=== PATIENT | female | born 1990 | race Hispanic/Latino ===

== ENCOUNTER → 2016-03-15 | Outpatient (CLI) | payer OTHER | LOC: M SMT 14:19 | PROVIDERS: ATTEND Obstetrics & Gynecology | DX: Z34.82 Encounter for supervision of other normal pregnancy, second trimester (principal) ==

== ENCOUNTER → 2016-03-18 | Outpatient (CLI) | payer OTHER ==
--- NOTE | 2016-03-19 03:19 | REP ---
Clinical: Anatomical evaluation. Comparison: None . Findings: Examination demonstrates a single live intrauterine in cephalic presentation. motion is identified by technologist. Placenta is noted posteriorly and grade zero without evidence for placenta previa or abruption. Amniotic fluid volume is normal. Cervix measures 4.3 cm in length and appears closed. No evidence for nuchal cord. Gestational age by current measurements 17 weeks 5 days with GWEN 08/21/2016 . FHR equals 150 beats per minute. BPD 3.7 cm 17 weeks 2 days HC 14.4 cm 17 weeks 4 days AC 12.4 cm 18 weeks 0 days FL 2.5 cm 17 weeks 4 days HL 2.6 cm 18 weeks 2 days HC/AC ratio 1.16 Estimated weight 210 grams ( 48th percentile). Anatomical assessment demonstrates normal structures including cranium, choroid plexus, cavum, cerebellum/posterior fossa, facial profile, lungs, four-chamber heart, stomach, bladder, and extremities. Bilateral renal pelviectasis within normal range. Limited evaluation of the facial features, cardiac ventricular outflow tracts, diaphragm, cord insertion/three-vessel cord and spine noted. Impression: Single live intrauterine in doubt presentation. Renal pelviectasis within normal range along with anatomical limitations as described above may warrant reevaluation and follow-up. No gross abnormality. Signed by Brayden Pruitt MD 03/19/2016 03:11 A
== END ==
LOC: M SMT 14:46
PROVIDERS: ATTEND Obstetrics & Gynecology
DX: Z34.82 Encounter for supervision of other normal pregnancy, second trimester (principal)

== ENCOUNTER → 2016-04-09 | Outpatient (CLI) | payer OTHER ==
--- NOTE | 2016-04-09 16:10 | REP ---
Obstetric sonography: History: Supervision of followup anatomy. Findings: Scanning through the gravid uterus demonstrates a viable single intrauterine gestation in a breech lie. motion is observed and heart rate is recorded at 136 beats per minute. A posterior grade 1 placenta is seen without evidence of previa or abruption. Amniotic fluid is subjectively normal. Closed cervical length is 3.3 cm. No extrauterine abnormality is observed. There has been appropriate interval growth. Exam quality was inhibited by maternal body habitus. cardiac views are still less than optimally seen. There is mild bilateral renal pyelectasis with the AP dimension of each kidney measuring 0.4 cm. This is the upper range of normal. No other abnormality is seen. The following anatomic structures are identified today and felt to be sonographically unremarkable: cranium, choroid plexus, cavum, cerebellum and posterior fossa, face and profile, lungs, diaphragm, left-sided stomach, abdominal wall cord insertion, three-vessel umbilical cord, urinary bladder, spine, upper and lower extremities. Biometry chart: BPD 4.7 cm = 20 weeks 1 day Head circumference 18.7 cm = 21 weeks 0 days Abdominal circumference 16.6 cm = 21 weeks 5 days Femur length 3.5 cm = 21 weeks 0 days Humeral length 3.3 cm = 21 weeks 2 days HC/AC ratio normal at 1.12, cephalic index normal at 0.67, estimated weight 412 grams 0 pounds 14 ounces 59th percentile for 20 weeks 6 days. Impression: Viable single intrauterine gestation at 20 weeks 5 days by today's composite sonographic criteria. Expected gestational age estimate based on prior sonography is 20 weeks 6 days. GWEN by prior sonography 08/21/2016. cardiac structure left and right ventricular cardiac outflow tract view still less than optimally seen. Four-chamber heart view obtained previously. Mild bilateral renal pyelectasis. Signed by Martínez Toro MD 04/09/2016 04:46 P
== END ==
LOC: M SMT 13:44
PROVIDERS: ATTEND Advanced Practice Midwife
DX: O99.212 Obesity complicating pregnancy, second trimester (principal); Z3A.20 20 weeks gestation of pregnancy

== ENCOUNTER → 2016-05-27 | Outpatient (CLI) | payer OTHER ==
[2016-05-27 18:31] LABS: BASO % 0.1 % (0.0-1.0); EOS # 0.1 K/mm3 (0.0-0.50); EOS % 0.9 % (0.0-3.0); LARGE UNSTAINED CELL # 0.1 K/mm3 (0.0-0.4); LARGE UNSTAINED CELL % 0.9 % (0.0-4.0); LYMPH # 1.8 K/mm3 (1.5-6.5); MEAN CORPUSCULAR HEMOGLOBIN 27.9 pg (27.0-33.0); MEAN CORPUSCULAR HGB CONC 33.1 g/dl (32.0-36.5); MEAN CORPUSCULAR VOLUME 84.5 fl (80.0-96.0); MONO # 0.3 K/mm3 (0.0-0.8); MONO % 3.4 % (0.0-5.0); NEUTROPHILS # 7.7 K/mm3 (1.8-7.7); NEUTROPHILS % 77.6 % (36.0-66.0); PLATELET COUNT, AUTOMATED 349 k/mm3 (150-450); RED CELL DISTRIBUTION WIDTH 13.8 % (11.5-14.5)
== END ==
LOC: M SMT 13:40
PROVIDERS: ATTEND Specialist
DX: O99.212 Obesity complicating pregnancy, second trimester (principal); Z3A.00 Weeks of gestation of pregnancy not specified
CPT/HCPCS: 36415; 82950; 85025; 86850; 86900; 86901; J2790

== ENCOUNTER → 2016-05-29 | Outpatient (CLI) | payer OTHER ==
--- NOTE | 2016-05-30 04:39 | REP ---
Clinical: Anatomical evaluation. Comparison: 04/09/2016 . Findings: Examination demonstrates a single live intrauterine in cephalic presentation. motion is identified by technologist. Placenta is noted posteriorly and grade one without evidence for placenta previa or abruption. Amniotic fluid volume is normal. Cervix measures 3.8 cm in length and appears closed. No evidence for nuchal cord. Gestational age by first ultrasound 28 weeks 0 days with GWEN 08/21/2016 . Gestational age by current measurements 28 weeks 6 days with GWEN 08/15/2016 . FHR equals 139 beats per minute. Amniotic fluid index equals 8.0 cm Estimated weight 1304 grams ( 63rd percentile). Anatomical assessment demonstrates normal cranium, stomach, bladder. A cardiac ventricular outflow tracts are again poorly evaluated. Bilateral mild renal pelviectasis suggested. Impression: Single live intrauterine in cephalic presentation demonstrating appropriate interval growth. Amniotic fluid index is minimally below normal range. Limited evaluation of the cardiac ventricular outflow tracts and mild renal pelviectasis may warrant reevaluation and follow-up. Signed by Brayden Pruitt MD 05/30/2016 04:31 A
== END ==
LOC: M SMT 14:03
PROVIDERS: ATTEND Specialist
DX: Z36 Encounter for antenatal screening of mother (principal); Z3A.28 28 weeks gestation of pregnancy

== ENCOUNTER 2016-06-30 03:18 | Outpatient (CLI) | payer OTHER ==
[~2016-06-30] VITALS: Ht 157.5 cm; Wt 130.0 kg
[2016-06-30] MEDS ORDERED: PRENTAB9 PO (03:25)
[2016-06-30] MEDS ORDERED: TUMS500C PO (03:25)
[2016-06-30 03:37] VITALS: BP 138/80
[2016-06-30 04:32] VITALS: BP 136/75
== END 2016-06-30 04:40 | disposition home or self-care (01) ==
LOC: M LDO 03:18
PROVIDERS: ATTEND Advanced Practice Midwife
DX: O26.893 Other specified pregnancy related conditions, third trimester (principal); R10.9 Unspecified abdominal pain; Z3A.32 32 weeks gestation of pregnancy; O99.613 Diseases of the digestive system complicating pregnancy, third trimester; O99.213 Obesity complicating pregnancy, third trimester; E66.9 Obesity, unspecified; K21.9 Gastro-esophageal reflux disease without esophagitis

== ENCOUNTER → 2016-07-24 | Outpatient (REF) | payer OTHER ==
[~2016-07-24] MED LIST: PRENTAB9 PO; TUMS500C PO
== END ==
LOC: M LAB REF 17:12
PROVIDERS: ATTEND Specialist
DX: Z34.83 Encounter for supervision of other normal pregnancy, third trimester (principal)

== ENCOUNTER → 2016-07-25 | Outpatient (CLI) | payer OTHER ==
[2016-07-25 19:30] LABS: MEAN CORPUSCULAR HGB CONC 33.7 g/dl (32.0-36.5); MEAN CORPUSCULAR VOLUME 83.2 fl (80.0-96.0); RED CELL DISTRIBUTION WIDTH 14.1 % (11.5-14.5); WHITE BLOOD COUNT 10.2 K/mm3 (4.0-10.0)
[2016-07-25 19:52] LABS: ALT/SGPT 15 U/L (12-78); AST/SGOT 16 U/L (15-37); BILIRUBIN,TOTAL 0.2 MG/DL (0.2-1.0); CREATININE FOR GFR 0.56 MG/DL (0.55-1.02); GLOMERULAR FILTRATION RATE > 60.0 (>60); URIC ACID 3.7 MG/DL (2.6-6.0)
[2016-07-25 20:28] LABS: CREATININE, SERUM 0.6 MG/DL (0.6-1.0)
[2016-07-25 20:59] LABS: CREATININE CLEARANCE, URINE 204.4 ML/MIN (75-115)
== END ==
LOC: M LAB 18:52
PROVIDERS: ATTEND Advanced Practice Midwife
DX: Z34.83 Encounter for supervision of other normal pregnancy, third trimester (principal)

== ENCOUNTER 2016-08-09 16:16 | Outpatient (CLI) | payer OTHER ==
[~2016-08-09] VITALS: Ht 157.5 cm; Wt 135.0 kg
[2016-08-09] MEDS ORDERED: ACET50TA PO (16:20)
[2016-08-09 16:39] VITALS: BP 127/64
== END 2016-08-09 17:26 | disposition home or self-care (01) ==
LOC: M LDO 16:16
PROVIDERS: ATTEND Advanced Practice Midwife
DX: O36.8930 Maternal care for other specified fetal problems, third trimester, not applicable or unspecified (principal); Z3A.38 38 weeks gestation of pregnancy

== ENCOUNTER 2016-08-24 09:16 | Inpatient (IN) | payer OTHER ==
[~2016-08-24] VITALS: Ht 157.5 cm; Wt 142.0 kg
[2016-08-24] VITALS (17 sets, daily range): BP systolic 133–180; BP diastolic 66–100
[~2016-08-24 09:16] MED LIST changes: +ACET50TA PO
[2016-08-24] MEDS ORDERED: LACTATED RINGER'S 1000 ML IV STA (10:17)
[2016-08-24] MEDS ORDERED: LR 1,000 ML IV SCH (10:17)
[2016-08-24] MEDS ORDERED: miSOPROStol 50 MCG 1/2 TAB (S0191) SL ONE ×3 (10:30→22:00)
[2016-08-24 12:37] LABS: MEAN CORPUSCULAR HEMOGLOBIN 27.7 pg (27.0-33.0); MEAN CORPUSCULAR HGB CONC 33.5 g/dl (32.0-36.5); MEAN CORPUSCULAR VOLUME 82.6 fl (80.0-96.0)
[2016-08-24 12:56] LABS: ALT/SGPT 13 U/L (12-78); AST/SGOT 14 U/L (15-37); BILIRUBIN,TOTAL 0.2 MG/DL (0.2-1.0); CREATININE FOR GFR 0.43 MG/DL (0.55-1.02); GLOMERULAR FILTRATION RATE > 60.0 (>60); URIC ACID 4.2 MG/DL (2.6-6.0)
[2016-08-24] MEDS ORDERED: PROMETHAZINE INJ 25 MG/ML VIAL (J2550) IV ONE ×2 (20:00→23:00)
[2016-08-24] MEDS ORDERED: BUTORPHANOL 2 MG/ML INJ (J0595) IV ONE ×2 (20:00→23:00)
[2016-08-25] VITALS (45 sets, daily range): BP systolic 113–173; BP diastolic 58–98
[2016-08-25] MEDS ORDERED: BUTORPHANOL 2 MG/ML INJ (J0595) IV ONE (04:00)
[2016-08-25] MEDS ORDERED: PROMETHAZINE INJ 25 MG/ML VIAL (J2550) IV ONE (04:00)
[2016-08-25] MEDS ORDERED: OXYTOCIN DRIP 30 UNITS in APPROPRIATE DILUENT 1 EA IV SCH ×2 (07:30→21:59)
[2016-08-25 07:49] LABS: MEAN CORPUSCULAR HEMOGLOBIN 27.2 pg (27.0-33.0); MEAN CORPUSCULAR HGB CONC 33.1 g/dl (32.0-36.5); MEAN CORPUSCULAR VOLUME 82.1 fl (80.0-96.0); RED CELL DISTRIBUTION WIDTH 15.2 % (11.5-14.5); WHITE BLOOD COUNT 17.9 K/mm3 (4.0-10.0)
[2016-08-25] MEDS ORDERED: FENTANYL 2MCG/ML ROPIVACAINE 0.2% IN 0.9% NACL 200ML IVBAG As Ordered ONE (07:56)
[2016-08-25 08:04] LABS: ALBUMIN 2.3 GM/DL (3.2-5.2); ALBUMIN/GLOBULIN RATIO 0.52 (1.00-1.93); ALKALINE PHOSPHATASE 127 U/L (45-117); ALT/SGPT 11 U/L (12-78); ANION GAP 11 MEQ/L (8-16); AST/SGOT 15 U/L (15-37); BILIRUBIN,TOTAL 0.3 MG/DL (0.2-1.0); BLOOD UREA NITROGEN 7 MG/DL (7-18); CARBON DIOXIDE LEVEL 18 MEQ/L (21-32); CHLORIDE LEVEL 106 MEQ/L (98-107); CREATININE FOR GFR 0.59 MG/DL (0.55-1.02); GLOMERULAR FILTRATION RATE > 60.0 (>60); GLUCOSE, FASTING 123 MG/DL (70-105); POTASSIUM SERUM 3.9 MEQ/L (3.5-5.1); SODIUM LEVEL 135 MEQ/L (136-145); TOTAL PROTEIN 6.7 GM/DL (6.4-8.2); URIC ACID 5.1 MG/DL (2.6-6.0)
[2016-08-25] MEDS ORDERED: ePHEDrine SULFATE 25 MG/5 ML(5MG/ML) SYRINGE IV PRN (09:45)
[2016-08-25] MEDS ORDERED: NALOXONE INJ 0.4 MG/1 ML VIAL (J2310) IV PRN (09:45)
[2016-08-25] MEDS ORDERED: FENTANYL/ROPIVACAINE/NACL BAG 200 ML EPIDURAL SCH (09:45)
[2016-08-25] MEDS ORDERED: EPIDURAL/PCA KEYS XX PRN (09:45)
[2016-08-25] MEDS ORDERED: REFRIGERATOR IV KEYS XX PRN (09:45)
[2016-08-25] MEDS ORDERED: EPIDURAL COMMENT XX SCH (09:45)
[2016-08-25] MEDS ORDERED: LACTATED RINGER'S 1000 ML IV PRN (09:45)
[2016-08-25] MEDS ORDERED: ONDANSETRON 4MG/2ML VIAL (J2405) IV PRN ×2 (09:45→22:00)
[2016-08-25] MEDS ORDERED: diphenhydrAMINE INJ 50MG/ML VIAL (J1200) IV PRN (09:45)
[2016-08-25] MEDS: LR 1,000 ML IV SCH (21:59)
[2016-08-25] MEDS ORDERED: PROMETHAZINE 25 MG TAB PO PRN (22:00)
[2016-08-25] MEDS ORDERED: DIBUCAINE 1% OINTMENT 30GM TOP PRN (22:00)
[2016-08-25] MEDS ORDERED: DOCUSATE SODIUM 100 MG CAP PO PRN (22:00)
[2016-08-25] MEDS ORDERED: MEASLES,MUMPS,RUBELLA VACCINE INJ (MMR-II) (90707) SC SCH (22:00)
[2016-08-25] MEDS ORDERED: RHOGAM 300 MCG (1500 IU) INJ (J2790) IM SCH (22:00)
[2016-08-25] MEDS: IBUPROFEN 800 MG TAB PO PRN (22:27)
[2016-08-26] VITALS (8 sets, daily range): BP systolic 128–169; BP diastolic 69–92
[2016-08-26] MEDS ORDERED: NIFEdipine 10 MG CAP PO ONE (01:00)
[2016-08-26] MEDS: IBUPROFEN 800 MG TAB PO PRN ×3 (05:53→22:57)
[2016-08-26] MEDS: LR 1,000 ML IV SCH (05:59)
[2016-08-26] MEDS: PRENATAL VITAMINS CHEWABLE TABLET PO SCH (09:00)
[2016-08-26] MEDS: ACETAMINOPHEN 500 MG TAB PO PRN ×3 (09:30→19:24)
[2016-08-26] MEDS: NIFEdipine 10 MG CAP PO SCH ×2 (13:36→22:58)
[2016-08-27] VITALS (8 sets, daily range): BP systolic 133–147; BP diastolic 63–77
[2016-08-27] MEDS: IBUPROFEN 800 MG TAB PO PRN ×3 (05:46→21:27)
[2016-08-27] MEDS: NIFEdipine 10 MG CAP PO SCH (05:47)
[2016-08-27] MEDS: ACETAMINOPHEN 500 MG TAB PO PRN ×3 (07:30→18:04)
[2016-08-27] MEDS: PRENATAL VITAMINS CHEWABLE TABLET PO SCH (07:44)
[2016-08-28 02:00] VITALS: BP 135/66
[2016-08-28 06:49] VITALS: BP 146/72
[2016-08-28] MEDS: PRENATAL VITAMINS CHEWABLE TABLET PO SCH (07:59)
== END 2016-08-28 16:50 | disposition home or self-care (01) | DRG 775 ==
LOC: M LDO 09:16 → M LDI 10:11 → M OBS 08-26 07:40
PROVIDERS: ADMIT Obstetrics & Gynecology; ATTEND Obstetrics & Gynecology
PROC: 10E0XZZ Delivery of Products of Conception, External Approach (ICD-10-PCS; principal; 2016-08-25)
PROC: 0KQM0ZZ Repair Perineum Muscle, Open Approach (ICD-10-PCS; 2016-08-25)
DX: O48.0 Post-term pregnancy (principal); Z37.0 Single live birth; Z3A.40 40 weeks gestation of pregnancy; E66.01 Morbid (severe) obesity due to excess calories; O99.214 Obesity complicating childbirth; O13.4 Gestational [pregnancy-induced] hypertension without significant proteinuria, complicating childbirth; O70.1 Second degree perineal laceration during delivery

== ENCOUNTER 2016-09-06 06:42 | Day surgery (SDC) | payer OTHER ==
[2016-09-06] VITALS (8 sets, daily range): BP systolic 148–176; BP diastolic 70–90
[~2016-09-06] VITALS: Ht 157.5 cm; Wt 130.6 kg
[2016-09-06] MEDS ORDERED: LABE10TAB PO (07:02)
[2016-09-06 07:47] LABS: BASO % 0.1 % (0.0-1.0); EOS # 0.1 K/mm3 (0.0-0.50); EOS % 0.4 % (0.0-3.0); LARGE UNSTAINED CELL # 0.1 K/mm3 (0.0-0.4); LARGE UNSTAINED CELL % 0.5 % (0.0-4.0); LYMPH # 1.2 K/mm3 (1.5-6.5); LYMPH % 8.9 % (24.0-44.0); MEAN CORPUSCULAR HEMOGLOBIN 26.9 pg (27.0-33.0); MEAN CORPUSCULAR HGB CONC 32.5 g/dl (32.0-36.5); MEAN CORPUSCULAR VOLUME 82.9 fl (80.0-96.0); MONO # 0.3 K/mm3 (0.0-0.8); MONO % 2.3 % (0.0-5.0); NEUTROPHILS # 11.2 K/mm3 (1.8-7.7); NEUTROPHILS % 87.8 % (36.0-66.0); PLATELET COUNT, AUTOMATED 561 k/mm3 (150-450); RED CELL DISTRIBUTION WIDTH 14.9 % (11.5-14.5); WHITE BLOOD COUNT 12.8 K/mm3 (4.0-10.0)
--- NOTE | 2016-09-06 08:01 | REP ---
Clinical: Abdominal pain and constipation. Technique: Two supine views of the abdomen and pelvis. Findings: Bowel gas pattern is nonspecific. No organomegaly. No abnormal calcifications. Skeletal structures are intact. Impression: Nonspecific bowel gas pattern. Signed by Brayden Pruitt MD 09/06/2016 07:52 A
[2016-09-06 08:10] LABS: ALBUMIN/GLOBULIN RATIO 0.63 (1.00-1.93); ALKALINE PHOSPHATASE 145 U/L (45-117); ALT/SGPT 64 U/L (12-78); AMYLASE 91 U/L (25-115); ANION GAP 11 MEQ/L (8-16); AST/SGOT 98 U/L (15-37); BILIRUBIN,DIRECT 0.2 MG/DL (0.0-0.2); BILIRUBIN,TOTAL 0.4 MG/DL (0.2-1.0); BLOOD UREA NITROGEN 13 MG/DL (7-18); CALCIUM LEVEL 9.5 MG/DL (8.5-10.1); CARBON DIOXIDE LEVEL 23 MEQ/L (21-32); CHLORIDE LEVEL 105 MEQ/L (98-107); CREATININE FOR GFR 0.64 MG/DL (0.55-1.02); GLOMERULAR FILTRATION RATE > 60.0 (>60); GLUCOSE, FASTING 111 MG/DL (70-105); SODIUM LEVEL 139 MEQ/L (136-145); TOTAL PROTEIN 7.8 GM/DL (6.4-8.2)
--- NOTE | 2016-09-06 08:47 | REP ---
RIGHT UPPER QUADRANT ULTRASOUND: Real-time sonographic evaluation of the right upper quadrant performed. Multiple gallstones are seen in the gallbladder. Gallbladder wall is thickened up to 5 mm. No free fluid is seen. There is no intrahepatic or extrahepatic biliary dilatation, common bile duct measuring 2 mm in diameter. Liver and pancreas demonstrate homogenous echotexture with no gross mass. Right kidney demonstrates no hydronephrosis or nephrolithiasis with normal size at 13.7 cm in length. IMPRESSION: Multiple gallstones in the gallbladder with diffusely thickened wall. No free fluid or biliary dilatation. Signed by Lux Hickey MD 09/06/2016 09:03 A
[2016-09-06] MEDS ORDERED: LR 1,000 ML IV SCH ×3 (12:00→19:30)
[2016-09-06] MEDS ORDERED: BUPIVACAINE HCL 0.25% 30 ML VIAL As Ordered ONE (15:11)
[2016-09-06 15:59] LABS: CONTROL LINE UCG INT CTR LINE PRESENT
[2016-09-06] MEDS ORDERED: MIDAZOLAM INJ 2 MG/2 ML VIAL (J2250) As Ordered ONE (16:53)
[2016-09-06] MEDS ORDERED: fentaNYL 250 MCG/5 ML INJECTION (J3010) As Ordered ONE (16:53)
[2016-09-06] MEDS ORDERED: CONRAY-60 60% 50ML VIAL (Q9961) As Ordered ONE (17:23)
[2016-09-06] MEDS ORDERED: ceFAZolin 1GM INJ (J0690) As Ordered ONE (17:24)
[2016-09-06] MEDS ORDERED: PHENYLephrine HCL 500 MCG/5 ML (100MCG/ML) SYRINGE (J2370) As Ordered ONE (17:34)
[2016-09-06] MEDS ORDERED: GLYCOPYRROLATE INJ 0.2 MG/ML 2 ML VIAL As Ordered ONE (17:53)
[2016-09-06] MEDS ORDERED: LIDOCAINE 2% INJ 100 MG/5 ML SDV (FOR ANES.) As Ordered ONE (17:53)
[2016-09-06] MEDS ORDERED: ROCURONIUM BROMIDE 50 MG/5 ML VIAL/SYRINGE As Ordered ONE (17:53)
[2016-09-06] MEDS ORDERED: dexameTHASONE 4 MG/ML 1ML VIAL (J1100) As Ordered ONE (17:53)
[2016-09-06] MEDS ORDERED: NEOSTIGMINE 1MG/ML 5 ML SYRINGE (J2710) As Ordered ONE (17:53)
[2016-09-06] MEDS ORDERED: ONDANSETRON 4MG/2ML VIAL (J2405) As Ordered ONE (17:53)
[2016-09-06] MEDS ORDERED: PROPOFOL 200 MG/20 ML VIAL As Ordered ONE (17:53)
[2016-09-06] MEDS ORDERED: KETOROLAC 60 MG/2 ML VIAL (J1885) As Ordered ONE (17:53)
[2016-09-06] MEDS ORDERED: METOCLOPRAMIDE INJ 10MG/2ML VIAL (J2765) As Ordered ONE (17:54)
[2016-09-06] MEDS ORDERED: HYDROmorphone HCL 2 MG/ML 1ML VIAL (J1170) As Ordered ONE (18:05)
--- NOTE | 2016-09-06 18:53 | REP ---
REASON: Rule out choledocholithiasis. Three spot images of the abdomen were obtained during intraoperative cholangiography in my [place]. No abnormal focal filling defects are seen in the opacified common bile duct. The duodenum is seen to opacify normally. Signed by Manuel Espinoza DO 09/06/2016 07:52 P
[2016-09-06] MEDS ORDERED: ONDANSETRON 4MG/2ML VIAL (J2405) IV PRN ×2 (19:15→19:30)
[2016-09-06] MEDS ORDERED: MORPHINE 2 MG/ML 1ML SYRINGE IV PRN (19:15)
[2016-09-06] MEDS ORDERED: KETOROLAC 30 MG/ML VIAL (J1885) IV PRN (19:15)
[2016-09-06] MEDS ORDERED: PERCOCET 5MG/325MG TAB PO PRN (19:30)
[2016-09-06] MEDS ORDERED: fentaNYL 100 MCG/2 ML INJECTION (J3010) IV PRN (19:30)
[2016-09-06] MEDS: LABETALOL 100 MG TAB PO SCH (21:01)
[2016-09-07] MEDS: ACETAMINOPHEN TAB 650MG DOSE (2X325MG) PO SCH ×2 (00:05→05:51)
[2016-09-07 00:20] VITALS: BP 156/74
[2016-09-07 01:20] VITALS: BP 139/72
[2016-09-07 03:54] VITALS: BP 138/75
[2016-09-07 06:50] LABS: ALBUMIN 3.1 GM/DL (3.2-5.2); ALBUMIN/GLOBULIN RATIO 0.74 (1.00-1.93); ALKALINE PHOSPHATASE 192 U/L (45-117); ALT/SGPT 127 U/L (12-78); ANION GAP 11 MEQ/L (8-16); AST/SGOT 88 U/L (15-37); BILIRUBIN,TOTAL 0.3 MG/DL (0.2-1.0); BLOOD UREA NITROGEN 8 MG/DL (7-18); CALCIUM LEVEL 8.9 MG/DL (8.5-10.1); CARBON DIOXIDE LEVEL 23 MEQ/L (21-32); CHLORIDE LEVEL 102 MEQ/L (98-107); CREATININE FOR GFR 0.64 MG/DL (0.55-1.02); GLOMERULAR FILTRATION RATE > 60.0 (>60); GLUCOSE, FASTING 106 MG/DL (70-105); POTASSIUM SERUM 4.4 MEQ/L (3.5-5.1); SODIUM LEVEL 136 MEQ/L (136-145); TOTAL PROTEIN 7.3 GM/DL (6.4-8.2)
[2016-09-07 08:30] VITALS: BP 141/88
[2016-09-07 08:50] VITALS: BP 141/88
[2016-09-07] MEDS: LABETALOL 100 MG TAB PO SCH (08:50)
[2016-09-07] MEDS ORDERED: NORCOTAB PO (12:05)
--- NOTE | 2016-09-08 14:24 | RO ---
DATE OF PROCEDURE: 09/06/2016 PREOPERATIVE DIAGNOSIS: Cholelithiasis with possible choledocholithiasis and biliary pancreatitis. POSTOPERATIVE DIAGNOSIS: Cholelithiasis with biliary pancreatitis. PROCEDURE PERFORMED: Laparoscopic cholecystectomy with intraoperative cholangiogram. SURGEON: Dr. Patricio Watts GUN PROFILER: ANESTHESIA: General. INDICATIONS FOR PROCEDURE: The patient is a 26-year-old woman who had delivered her first child by a normal vaginal delivery approximately 12 days earlier. On the organizational development specialist of 09/06/2016, she was awakened with severe epigastric pain that radiated through to her back. She presented to the emergency department after several hours with persistent pain. She was found to have an elevation of her lipase to greater than 1000, though her liver function tests were not significantly abnormal. An ultrasound confirmed cholelithiasis. While in the emergency department, her pain resolved. She was felt to have passed a common bile duct stone and is now for a laparoscopic cholecystectomy with intraoperative cholangiogram. DESCRIPTION OF PROCEDURE: The patient was placed under general endotracheal anesthesia. The patient's abdomen was prepped and draped in a sterile fashion. Local anesthesia of 0.25% Marcaine was infiltrated at each of the trocar sites. A short midline incision was made approximately 5 cm above the umbilicus. This was deepened through the abundant subcutaneous fat to the fascia which was opened along the midline. The peritoneum was opened bluntly and a Quincy cannula was inserted. The abdomen was insufflated with carbon dioxide gas. The laparoscope was placed. Initial examination showed a normal-appearing liver. The gallbladder appeared distended. There was evidence for some edema in the midbody of the gallbladder. Two 5 mm trocars were placed in the right upper quadrant and a third 5 mm trocar was placed in the left upper quadrant. The patient was tilted to a slight reverse Trendelenburg position and rolled slightly to the left. The gallbladder was grasped and elevated. A few attachments around the neck of the gallbladder, which appeared to be developmental, were divided using the hook cautery. Dissection proceeded to identify the cholecystic artery and the cystic duct. The cholecystic artery was small and running directly alongside the cystic duct and this was clipped and divided. The cystic duct appeared somewhat larger than average and perhaps mildly edematous. Dissection proceeded somewhat more distally to achieve a narrower point in the cystic duct. At this point, the duct was clipped and then nicked and a balloon cholangiogram catheter was inserted. Cholangiograms were obtained using fluoroscopy with the injection of 30% Conray. The images showed a fairly long cystic duct paralleling the common bile duct. The ducts were of normal caliber. There were no definite filling defects identified. There was free flow of contrast noted into the duodenum through a normal tapering distal common bile duct. The cholangiogram catheter was removed and in doing so, several very small stones were dislodged from the end of the cystic duct. It may be that the patient had a somewhat more tapering character to the gallbladder neck and that we were in the very most distal part of this. Approximately three small stones were milked from the opening in the cystic duct, and this was then clipped and divided. The gallbladder was then dissected free from the gallbladder bed using cautery dissection. The gallbladder was not perforated in the course of dissection. The gallbladder was placed in an Endopouch. The right upper quadrant was irrigated and inspected. The small stones had been removed using a grasping forceps. The patient was returned to a flat position. Final inspection showed no evidence of bleeding or bile leak. The abdomen was deflated, and the trocars were then all removed. The gallbladder was recovered through the Quincy site. Palpation revealed multiple small stones layering in the dependent portion of the gallbladder. The fascia at the Quincy site was closed with #2-0 Vicryl. The skin incisions were all closed with buried #5-0 Vicryl and Steri-Strips. The patient tolerated the procedure well without apparent complication. She was awakened in the operating room, extubated and moved to the recovery room in stable condition. FREDDY
== END 2016-09-07 13:10 | disposition home or self-care (01) ==
LOC: M ED 06:42 → M SDC 10:42 → M PED 14:19 → M SDC 09-07 13:10
PROVIDERS: ATTEND Surgery
DX: K80.20 Calculus of gallbladder without cholecystitis without obstruction (principal); K85.10 Biliary acute pancreatitis without necrosis or infection; J45.909 Unspecified asthma, uncomplicated; Z79.899 Other long term (current) drug therapy
CPT/HCPCS: 36415; 47563; 74000; 74300; 76705; 80048; 80053; 80076; 81001; 82150; 83690; 84703; 85025; 88304; 96374; 99284; J0690; J1100; J1170; J1885; J2250; J2370; J2405; J2710; J2765; J3010; Q9961